=== PATIENT | male | born 1980 | race American Indian/Alaskan Native ===

== ENCOUNTER 2017-04-16 02:02 | Emergency (ER) | payer MEDICAID ==
--- NOTE | 2017-04-16 02:12 | C.PDOC ---
History Of Present Illness Patient presents to the ED for evaluation of acute alcohol intoxication for an unknown duration. Patient admits to drinking earlier today. He denies suicidal/ homicidal ideation and has no physical complaints at this time. Time Seen by Provider: 04/16/17 02:10 Chief Complaint (Nursing): Substance Abuse History Per: Patient History/Exam Limitations: intoxication Onset/Duration Of Symptoms: Unknown Current Symptoms Are (Timing): Still Present Suicide/Self Injury Attempted (Context): None Modifying Factor(s): Alcohol Severity: Mild Pain Scale Rating Of: 3 Associated Symptoms: denies: Suicidal Thoughts, Suicidal Plan Involuntary Hold By: None Recent travel outside of the [place]: No Additional History Per: Patient Past Medical History Reviewed: Historical Data, Nursing Documentation, Vital Signs Vital Signs: Last Vital Signs Temp 98.2 F 04/16/17 02:09 Pulse 110 H 04/16/17 02:09 Resp 14 04/16/17 02:09 BP 140/70 04/16/17 02:09 Pulse Ox 96 04/16/17 04:52 - Medical History PMH: No Chronic Diseases Surgical History: No Surg Hx Family History: States: Unknown Family Hx Review Of Systems Constitutional: Positive for: Other (+ETOH intoxication) Cardiovascular: Negative for: Chest Pain, Palpitations Respiratory: Negative for: Cough, Shortness of Breath Gastrointestinal: Negative for: Nausea, Vomiting, Abdominal Pain Skin: Negative for: Rash, Lesions, Jaundice, Bruising Neurological: Negative for: Weakness, Numbness Psych: Negative for: Suicidal ideation Physical Exam - Physical Exam Appears: No Acute Distress, Other (visibly intoxicated ) Skin: Warm, Dry Head: Normacephalic Eye(s): bilateral: Normal Inspection Oral Mucosa: Moist, Other (alcohol on breath ) Neck: Supple Chest: Symmetrical, No Deformity, No Tenderness Cardiovascular: Rhythm Regular, No Murmur Respiratory: No Rales, No Rhonchi, No Wheezing Extremity: Normal ROM, Capillary Refill (less than 2 seconds ) Neurological/Psych: Other (arousable to touch and verbal stimuli ) Gait: Unsteady ED Course And Treatment O2 Sat by Pulse Oximetry: 96 (on RA) Pulse Ox Interpretation: Normal Reevaluation Time: 05:14 Reassessment Condition: Improved Disposition Counseled Patient/Family Regarding: Studies Performed, Diagnosis, Need For Followup - Disposition Referrals: [facility] [Outside] Disposition Time: 02:12 Condition: FAIR Instructions: Alcohol Intoxication (DC) Forms: [employer] (Hungarian) - Clinical Impression Clinical Impression: Alcohol intoxication - Scribe Statement The provider has reviewed the documentation as recorded by the Scribe (Taryn Birmingham) Provider Attestation: All medical record entries made by the Scribe were at my direction and personally dictated by me. I have reviewed the chart and agree that the record accurately reflects my personal performance of the history, physical exam, medical decision making, and the department course for this patient. I have also personally directed, reviewed, and agree with the discharge instructions and disposition.
[2017-04-16 05:20] VITALS: BP 121/80; PULSE 94; RESP 16; TEMP 98.3; O2SAT 97
== END 2017-04-16 05:21 | disposition home or self-care (01) ==
LOC: C.ER 02:02
DX: F10.129 Alcohol abuse with intoxication, unspecified (principal); Y90.9 Presence of alcohol in blood, level not specified

== ENCOUNTER 2018-10-25 | Emergency (ER) | payer OTHER, MEDICAID ==
[2018-10-25] MEDS ORDERED: Tdap Vaccine 0.5 ml Vial (10-64 yrs) IM ONE ×2 (00:23→00:44)
[2018-10-25] MEDS ORDERED: Bacitracin 500 Units/gm Oint Foilpak UD TOP ONE (00:24)
--- NOTE | 2018-10-25 00:26 | C.PDOC ---
History Of Present Illness 38 year old male presents to the ED for evaluation of right lower leg injury. Patient reports that while at work tonight his right leg was caught in the middle of steel plates. Patient denies weakness, numbness, LOC, headache. Chief Complaint (Nursing): Lower Extremity Problem/Injury History Per: Patient History/Exam Limitations: no limitations Onset/Duration Of Symptoms: Hrs Current Symptoms Are (Timing): Still Present Recent travel outside of the [place]: No Additional History Per: Patient - Ankle/Foot Description Of Injury: Struck Against Object Currently Unable To: Bear Weight, Bend Or Move Past Medical History Reviewed: Historical Data, Nursing Documentation, Vital Signs Vital Signs: Last Vital Signs Temp 98.1 F 10/25/18 00:09 Pulse 85 10/25/18 00:09 Resp 20 10/25/18 00:09 BP 133/90 10/25/18 00:09 Pulse Ox 99 10/25/18 00:09 - Medical History PMH: Seizures Surgical History: No Surg Hx Family History: States: Unknown Family Hx - Social History Hx Alcohol Use: Yes Hx Substance Use: No - Immunization History Hx Tetanus Toxoid Vaccination: No Hx Influenza Vaccination: No Hx Pneumococcal Vaccination: No Review Of Systems Constitutional: Negative for: Fever, Chills Respiratory: Negative for: Cough, Shortness of Breath Gastrointestinal: Negative for: Nausea, Vomiting, Abdominal Pain Musculoskeletal: Positive for: Leg Pain, Foot Pain Skin: Positive for: Other (abrasion) Neurological: Negative for: Weakness, Numbness, Headache, Dizziness Physical Exam - Physical Exam Appears: Non-toxic, No Acute Distress Skin: Normal Color, Warm, Dry Head: Atraumatic, Normacephalic Eye(s): bilateral: Normal Inspection Neck: Normal ROM, Supple Chest: Symmetrical Cardiovascular: Rhythm Regular Respiratory: Normal Breath Sounds, No Rales, No Rhonchi, No Wheezing Extremity: No Normal ROM (right leg due to pain), Tenderness (right lower leg dorsal aspect), Capillary Refill (< 2 seconds), No Deformity, No Swelling, Other (4.5 cm abrasion dorsal aspect right lower leg) Pulses: Left Dorsalis Pedis: Normal, Right Dorsalis Pedis: Normal Neurological/Psych: Oriented x3, Normal Speech, Normal Cognition, Normal Motor, Normal Sensation Gait: Unable To Assess ED Course And Treatment O2 Sat by Pulse Oximetry: 99 (ON RA) Pulse Ox Interpretation: Normal - Other Rad Rt. lower leg X-Ray: Interpreted by Me, Viewed By Me Interpretation: NO Fracture Medical Decision Making Medical Decision Making: Plan: * Tetanus immunization * Bacitracin * Toradol 60 mg IM * Right leg X-Ray Disposition Counseled Patient/Family Regarding: Diagnosis - Disposition Referrals: [facility] [Outside] Disposition: HOME/ ROUTINE Disposition Time: 01:33 Condition: STABLE Prescriptions: Naproxen 375 mg PO TIDPC #20 tablet Instructions: Wound Care (DC), Tdap Vaccine Forms: [employer] (Kyrgyz) - POA Present On Arrival: None - Clinical Impression Clinical Impression: Abrasion, Contusion of lower leg, right - Scribe Statement The provider has reviewed the documentation as recorded by the Scribe Isma Pedersen All medical record entries made by the Scribe were at my direction and pe rsonally dictated by me. I have reviewed the chart and agree that the record accurately reflects my personal performance of the history, physical exam, medical decision making, and the department course for this patient. I have also personally directed, reviewed, and agree with the discharge instructions and disposition.
[2018-10-25] MEDS ORDERED: Bacitracin 500 Units/gm Oint Foilpak UD ONE (00:30)
[2018-10-25 01:47] VITALS: O2SAT 97
[2018-10-25 05:19] VITALS: BP 110/63; PULSE 68; RESP 16; TEMP 97.7
--- NOTE | 2018-10-25 09:26 | RAD ---
Date of service: 10/25/2018 PROCEDURE: Radiographs of the right tibia and fibula. HISTORY: injury/ pain COMPARISON: None available TECHNIQUE: Frontal and lateral views obtained. FINDINGS: BONES: No fracture identified. No dislocation seen. JOINT SPACES: Bony articulations appear maintained. OTHER FINDINGS: None. IMPRESSION: No fracture or dislocation identified.
== END 2018-10-25 07:49 | disposition home or self-care (01) ==
LOC: C.ER
DX: S80.811A Abrasion, right lower leg, initial encounter (principal); S80.11XA Contusion of right lower leg, initial encounter; W23.0XXA Caught, crushed, jammed, or pinched between moving objects, initial encounter; Y92.89 Other specified places as the place of occurrence of the external cause; Y99.0 Civilian activity done for income or pay
CPT/HCPCS: 73590; 90471; 90715; 96372; 99285; J1885